=== PATIENT | female | born 1950 | race Caucasian/White ===

== ENCOUNTER 2024-03-12 13:01 | Outpatient (POV) | payer MEDICARE, SELFPAY ==
--- OUTSIDE RECORDS SUMMARY | 2024-03-12 13:05 | XMS_ITS | Continuity of Care Document ---
Author Name Unknown Address [address] [facility] [place] [id number] Organization [facility] Phone Care Team Providers Care Is Consultant Name Role Phone AUDREY CHEN [facility] LINWOOD DUENAS Admitting LINWOOD DUENAS Unavailable LINWOOD DUENAS Primary Attending ALLERGIES AND ADVERSE REACTIONS ALLERGIES AND ADVERSE REACTIONS Code System Allergy Substance Adverse Reaction Date Reaction (Severity) Comment Status Reported By Updated By 7597 RXNorm NYSTATIN Adverse reaction to substance Not Specified active [id number] on December 03, 2023 3:48:40 PM [facility] 7052 RXNorm MORPHINE Adverse reaction to substance Not Specified active [id number] on December 03, 2023 3:48:40 PM [facility] [id number] SNOMED CT CORTICOSTEROIDS Adverse reaction to substance Not Specified active [id number] on December 03, 2023 3:48:40 PM [facility] FAMILY HISTORY RELATION: Father Status: Cause of : Old-age Age at : 100 SNOMED-CT Diagnosis Age At Onset Information not available RELATION: Mother Status: Cause of : Coronary arteriosclerosis Age at : 63 SNOMED-CT Diagnosis Age At Onset [id number] Coronary arteriosclerosis TREATMENT PLAN DISCHARGE MEDICATIONS Status RXNORM Medication Dose Route Frequency Dates Comments U pdated By Patient discharge medication information is not available. PATIENT OPEN ORDERS Code System Description Frequency Occurrences Priority [place] [address] - [facility]-ray 2 views ONE TIME 0 Stat March 07, 2024 7:04:00 PM [facility] YULISSA Jose MD [id number] on March 07, 2024 7:17:00 PM [facility] SCHEDULED PROCEDURES Code System Description Status Scheduled Date Upd ated By Patient scheduled procedure information is not available. MEDICATIONS HOME MEDICATIONS Status RXNORM NDC Medication Dose Route Frequency Dates Comments Reported By Updated By Drug Treatment Unknown DISCHARGE MEDICATIONS Status RXNORM NDC Medication Dose Route Frequency Dates Comments Physician Updated By No Discharge Medication Info rmation Available INPATIENT MEDICATIONS Status RXNORM NDC Medication Dose Route Frequency Rat e Quantity Dates Comments Physician Updated By Eldon [facility] [id number] 9099 120 traMADol (ULTRAM) 50 MG TABS 50.0 MG BY MOUTH ONE TIME ONLY Start: March 07, 2024 9:33:0 0 PM UTC End: March 07, 2024 9:33:0 0 PM [facility] YULISSA Jose MD INTERF ED on March 07, 2024 9:32:00 PM [place] SOCIAL HISTORY SOCIAL HISTORY SNOMED-CT Social History Element Description Effective Dates Offered Cessation Comment UpdatedBy [id number] Historical Tobacco smoking status Former Smoker Yes [id number] on June 15, 2019 5:40:59 PM [facility] SOCIAL HISTORY - Gender Sex: Female SOCIAL HISTORY - Status : status i nformation is not available Intention in Next Year: intention information is not available SOCIAL HISTORY - Sexual Behavior Sexual Orientation Gender Identity SNOMED-CT Description SNO MED -CT Description Activity Level No of Partners Partner Type UpdatedBy Information is not available VITAL SIGNS PATIENT VITAL SIGNS This section displays the mo st recent value for each vital sign as of March 07, 2024 10:38:03 PM [facility] Loinc Code Vital Sign Activity Date Result Updated By 8462-4 Diastolic blood pressure March 07, 2024 9:22:00 PM [place] 105.0 mm[Hg] [id number] on March 07, 2024 9:23:57 PM [facility] 8867-4 Heart rate March 07, 2024 9:2 2:00 PM UT 78 /min [id number] on March 07, 2024 9:23:57 PM [facility] 54827-3 Oxygen saturation in Arterial blood by Pulse oximetry March 07, 2024 9:22:00 PM UT 98.0 % [id number] on March 07, 2024 9:23:57 PM [facility] 9279-1 Respiratory rate March 07, 2024 9: 22:00 PM UT 95 /min [id number] on March 07, 2024 9:23:57 PM [facility] 8480-6 Systolic blood pressure March 07, 2024 9:22:00 PM UT 196.0 mm[Hg] [id number] on March 07, 2024 9:23:57 PM [facility] PEDIATRIC GROWTH CHART - VITAL SIGNS This section displays Head C ircumference Percentile, Weight for Length Percentile and BMI Percentile Loinc Code Pediatric Measure Age (Months) Result Updat ed By No Pediatric Growth Chart Pe rcentile Information Available. HEALTH CONCERNS Problems Concern Status Health Concern problem infor mation not available. Smoking Status Status Years Used Consumed packs p er day Health Concern smoking histo ry information not available. Family History Concern Status Health Concern family histor y information not available. ENCOUNTERS ENCOUNTER INFORMATION Reason for Visit LEG PAIN Admission March 07, 2024 6:33:[address] [id number] Discharge March 07, 2024 9:38:00 PM [facility] DISC HARGED TO HOME OR SELF CARE ENCOUNTER DIAGNOSES Notes information is not anila ilable. Code System Diagnosis Onset Date Diagnosis information is not available. ABSTRACT DIAGNOSES Code System Diagnosis Updated By Abstract Diagnosis informati on is not available. CARE TEAM Care Is Consultant Role AUDREY CHEN Primary Care LINWOOD DUENAS Admitting LINWOOD DUENAS Referring LINWOOD DUENAS Primary Attending CARE TEAM CARE recreation programmer Role on Team Status Start Date End Date Update d By YULISSA AGUILAR Referring normal March 07, 2024 7:17:41 PM [facility] March 07, 2024 9:38:00 PM [facility] [id number] on March 07, 2024 7:17:41 PM [facility] YULISSA AGUILAR Attending normal March 07, 2024 7:17:41 PM [facility] March 07, 2024 9:38:00 PM [facility] [id number] on March 07, 2024 7:17:41 PM [facility] YULISSA AGUILAR Admitting normal March 07, 2024 7:17:41 PM [facility] March 07, 2024 9:38:00 PM [facility] [id number] on March 07, 2024 7:17:41 PM [facility] GUSTAVO AGUILAR PCP normal March 07, 2024 6:33:31 PM [facility] March 07, 2024 9:38:00 PM [facility] [id number] on March 07, 2024 7:17:41 PM [facility]
--- OUTSIDE RECORDS SUMMARY | 2024-03-12 13:05 | XMS_ITS | Continuity of Care Document ---
Author Name Unknown Address [address] [place] [id number] Organization [facility] Phone Care Team Providers Care Identity Access Management Architect Name Role Phone LINWOOD DUENAS Primary Attending AUDREY CHEN Primary Care LINWOOD DUENAS Unavailable LINWOOD DUENAS Admitting ALLERGIES AND ADVERSE REACTIONS ALLERGIES AND ADVERSE REACTIONS Code System Allergy Substance Adverse Reaction Date Reaction (Severity) Comment Status Reported By [place] 7589 RXNorm NYSTATIN Adverse reaction to substance Not Specified active [id number] on December 03, 2023 3:48:40 PM [place] 7052 RXNorm MORPHINE Adverse reaction to substance Not Specified active [id number] on December 03, 2023 3:48:40 PM [place] [id number] SN[place]ED CT CORTICOSTEROIDS Adverse reaction to substance Not Specified active [id number] on December 03, 2023 3:48:40 PM [facility] FAMILY HISTORY RELATION: Father Status: Cause of : Old-age Age at : 100 SNOMED-CT Diagnosis Age At Onset Information not available RELATION: Mother Status: Cause of : Coronary arteriosclerosis Age at : 63 SNOMED-CT Diagnosis Age At Onset [id number] Coronary arteriosclerosis RESULTS Patient: EVENS Ferrari Date of : 1950 LABORATORY RESULTS ORDER 100: COMP METABOLIC PA SAMMI (LOINC: 40354-1) ORDER DATE: December 03, 2023 3:51:00 PM [place] Specimen Source: Serum/Plasm a Specimen Type: Acellular blo od (serum or plasma) specimen PERFORMING LAB: [address] [id number] Result Comment: Final Result Date: December 03, 2023 4:22:00 PM UT (TECH: HC) LOINC TEST FLAG RESULT REFERENCE RANGE UPDA MATEO BY 2951-2 Sodium [Moles/volume ] in Serum or Plasma N 141 mmol/L 136 mmol/L - 145 mmol/L December 03, 2023 4:22:00 PM UT (TECH: [employer]) 2823-3 Potassium [Moles/volume] in Serum or Plasma N 4.1 mmol/L 3.5 mmol/L - 5.1 mmol/L December 03, 2023 4:22:00 PM UT (TECH: [employer]) 5-0 Chloride [Moles/volu me] in Serum or Plasma N 101 mmol/L 98 mmol/L - 107 mmol/L December 03, 2023 4:22:00 PM UT (TECH: [employer]) 2027-9 Carbon dioxide, tota l [Moles/volume] in Serum or Plasma H 34 mmol/L 21 mmol/L - 32 mmol/L December 03, 2023 4:22:00 PM [facility] (TECH: [employer]) 92429-0 Anion gap 3 in Serum or Plasma N 6.0 December 03, 2023 4:22:00 PM [facility] (TECH: [employer]) 2345-7 Glucose [Mass/volume ] in Serum or Plasma H 143 mg/dL 70 mg/dL - 110 mg/dL December 03, 2023 4:22:00 PM [facility] ([employer]: Entelos) 3094-0 Urea nitrogen [Mass/volume] in Serum or Plasma N 14 mg/dL 7 mg/dL - 18 mg/dL December 03, 2023 4:22:00 PM [facility] (TECH: [employer]) 2160-0 Creatinine [Mass/volume] in Serum or Plasma H 1.1 mg/dL 0.6 mg/dL - 1.0 mg/dL December 03, 2023 4:22:00 PM [facility] (TECH: [employer]) 3097-3 Urea nitrogen/Creatinine [Mass Ratio] in Serum or Plasma N 12.7 Ratio 9 Ratio - 21 Ratio December 03, 2023 4:22:00 PM [facility] (TECH: [employer]) 04340-3 Glomerular filtratio n rate/1.73 sq M.predicted by Creatinine-based formula (MDRD) L 52 mL/min >60 December 03, 2023 4:22:00 PM UT (TECH: [employer]) 2885-2 Protein [Mass/volume ] in Serum or Plasma N 7.6 g/dL 6.4 g/dL - 8.2 g/dL December 03, 2023 4:22:00 PM UT (TECH: [employer]) 1751-7 Albumin [Mass/volume ] in Serum or Plasma N 3.6 g/dL 3.4 g/dL - 5.0 g/dL December 03, 2023 4:22:00 PM [place] (TECH: [employer]) 63010-1 Calcium [Mass/volume ] in Serum or Plasma N 10.1 mg/dL 8.5 mg/dL - 10.1 mg/dL December 03, 2023 4:22:00 PM UT (TECH: [employer]) 25816-0 Calcium [Mass/volume ] corrected for total protein in Serum or Plasma H 10.4 mg/dL 8.5 mg/dL - 10.1 mg/dL December 03, 2023 4:22:00 PM [facility] (TECH: [employer]) 1975-2 Bilirubin.total [Mass/volume] in Serum or Plasma N 0.4 mg/dL 0.4 mg/dL - 1.5 mg/dL December 03, 2023 4:22:00 PM [facility] (TECH: [employer]) 1920-8 Aspartate aminotransferase [Enzymatic activity/volume] in Serum or Plasma N 16 U/L 15 U/L - 37 U/L December 03, 2023 4:22:00 PM UT (TECH: [employer]) 1742-6 Alanine aminotransferase [Enzymatic activity/volume] in Serum or Plasma L 11 U/L 12 U/L - 78 U/L December 03, 2023 4:22:00 PM [facility] (TECH: [employer]) 6768-6 Alkaline phosphatase [Enzymatic activity/volume] in Serum or Plasma N 84 U/L 53 U/L - 141 U/L December 03, 2023 4:22:00 PM UT (TECH: [employer]) ORDER 200: CBC AUTO W DIFF ( LOINC: 68439-6) ORDER DATE: December 03, 2023 3:51:00 PM UT Specimen Source: Whole Blood Specimen Type: Whole blood s ample PERFORMING LAB: [address] [id number] Result Comment: Final Result Date: December 03, 2023 4:10:00 PM UT (TECH: [employer]) LOINC TEST FLAG RESULT REFERENCE RANGE UPDA MATEO BY 6690-2 Leukocytes [#/volume] in Blood by Automated count N 8.5 10^3/uL 4.5 10^3/uL - 11.5 10^3/uL December 03, 2023 4:10:00 PM UTC ([employer]) 789-8 Erythrocytes [#/volume] in Blood by Automated count N 5.46 10^6/uL 4.25 10^6/uL - 5.57 10^6/uL December 03, 2023 4:10:00 PM UTC ([employer]) 718-7 Hemoglobin [Mass/volume] in Blood H 16.3 g/dL 12.0 g/dL - 15.7 g/dL December 03, 2023 4:10:00 PM UTC (TECH: [employer]) 07837-0 Hematocrit [Volume Fraction] of Blood H 48.3 % 36.0 % - 47.0 % December 03, 2023 4:10:00 PM UTC ([employer]) 787-2 Erythrocyte mean corpuscular volume [Entitic volume] by Automated count N 88.5 fl 80 fl - 95 fl December 03, 2023 4:10:00 PM UTC ([employer]) 22582-5 Erythrocyte mean corpuscular hemoglobin [Entitic mass] in Blood from Fetus by Automated count N 29.9 pg 27.0 pg - 34.0 pg December 03, 2023 4:10:00 PM UTC ([employer]: [employer]elos) 07168-6 Erythrocyte mean corpuscular hemoglobin concentration [Mass/volume] in Blood from Fetus by Automated count N 33.7 g/dL 32.0 g/dL - 36.0 g/dL December 03, 2023 4:10:00 PM UTC ([employer]: [employer]elos) 08354-5 Platelets [#/volume] in Blood N 278 10^3/uL 150 10^3/uL - 450 10^3/uL December 03, 2023 4:10:00 PM UTC ([employer]: [employer]) 73261-4 Erythrocyte distribution width [Ratio] N 12.4 % 12.3 % - 15.1 % December 03, 2023 4:10:00 PM UTC (TECH: [employer]) 38607-2 Platelet mean volume [Entitic volume] in Blood by Automated count N 10.0 fl 7.4 fl - 10.4 fl December 03, 2023 4:10:00 PM UTC (TECH: HC) 49325-4 Granulocytes/100 leukocytes in Blood by Automated count N 67.8 % 40 % - 75 % December 03, 2023 4:10:00 PM UTC (TECH: HC) 736-9 Lymphocytes/100 leukocytes in Blood by Automated count N 24.4 % 15 % - 57 % December 03, 2023 4:10:00 PM UTC (TECH: HC) 5905-5 Monocytes/100 leukocytes in Blood by Automated count N 5.6 % 4.0 % - 12.0 % December 03, 2023 4:10:00 PM UTC (TECH: HC) 713-8 Eosinophils/100 leukocytes in Blood by Automated count N 1.3 % 0.0 % - 4.0 % December 03, 2023 4:10:00 PM UTC (TECH: HC) 706-2 Basophils/100 leukocytes in Blood by Automated count N 0.5 % 0.0 % - 1.0 % December 03, 2023 4:10:00 PM UTC (TECH: HC) 48358-4 Immature granulocytes [#/volume] in Blood N 0.4 % 0.0 % - 0.8 % December 02 4:10:00 PM UTC (TECH: HC) 83338-9 Granulocytes [#/volume] in Blood by Automated count N 5.74 10^3/uL December 03, 2023 4:10:00 PM UTC (TECH: HC) 731-0 Lymphocytes [#/volume] in Blood by Automated count N 2.06 10^3/uL December 03, 2023 4:10:00 PM UTC (TECH: HC) 742-7 Monocytes [#/volume] in Blood by Automated count N 0.47 10^3/uL December 03, 2023 4:10:00 PM UTC (TECH: HC) 711-2 Eosinophils [#/volume] in Blood by Automated count N 0.11 10^3/uL December 03, 2023 4:10:00 PM UTC (TECH: HC) 704-7 Basophils [#/volume] in Blood by Automated count N 0.04 10^3/uL December 03, 2023 4:10:00 PM UTC (TECH: HC) 73058-0 Immature granulocytes [#/volume] in Blood N 0.03 10^3/uL December 02 4:10:00 PM UTC (TECH: HC) 21698-9 Manual differential performed [Presence] in Blood N NO December 03, 2023 4:10:00 PM UTC (TECH: HC) ORDER 300: UA AND MICRO/CULT IF INDICATED (LOINC: 25896-6) ORDER DATE: December 03, 2023 3:51:00 PM UTC Specimen Source: URINE Specimen Type: Urine specime n PERFORMING LAB: [address] [id number] Result Comment: Final Result Date: December 03, 2023 4:04:00 PM UTC (TECH: HC) LOINC TEST FLAG RESULT REFERENCE RANGE UPDA MATEO BY 5778-6 Color of Urine N yellow YELLOW December 03, 2023 4:04:00 PM UTC (TECH: HC) 5767-9 Appearance of Urine N clear CLEAR December 03, 2023 4:04:00 PM UTC (TECH: HC) 5792-7 Glucose [Mass/volume ] in Urine by Test strip N NORM NORMAL December 02 4:04:00 PM UTC (TECH: HC) 14896-5 Bilirubin.total [Mass/volume] in Urine by Automated test strip N NEGATIVE NEGATIVE December 03, 2023 4:04:00 PM UTC (TECH: HC) 5797-6 Ketones [Mass/volume ] in Urine by Test strip N NEGATIVE NEGATIVE December 02 4:04:00 PM UTC (TECH: HC) 2965-2 Specific gravity of Urine N 1.010 1.005 - 1.035 December 03, 2023 4:04:00 PM UTC (TECH: HC) 51719-4 Erythrocytes [#/volu me] in Urine by Automated test strip N NEGATIVE NEGATIVE December 03, 2023 4:04:00 PM UTC (TECH: HC) 63562-0 pH of Urine by Autom ated test strip H 8.00 5.0 - 7.5 December 03, 2023 4:04:00 PM UTC (TECH: HC) 29366-8 Protein [Presence] i n Urine by Test strip N NEGATIVE NEGATIVE December 02 4:04:00 PM UTC (TECH: HC) 30297-9 Urobilinogen [Mass/volume] in Urine by Automated test strip N NORM NORMAL December 03, 2023 4:04:00 PM UT ([employer] ) 96813-1 Nitrate [Presence] i n Urine N NEGATIVE NEGATIVE December 03, 2023 4:04:00 PM UT ([employer] ) 76108-8 Leukocytes [#/volume ] in Urine by Test strip N NEGATIVE NEGATIVE December 02 4:04:00 PM UTC ([employer] ) 07563-6 Other elements in Ur ine sediment N NOT REQUIRED December 03, 2023 4:04:00 PM UT ([employer] ) 92288-2 Microscopic observat ion [Identifier] in Urine sediment by Light microscopy N NO December 03, 2023 4:04:00 PM UT ([employer]) LABORATORY NARRATIVE RESULTS Information is not available RADIOLOGY RESULTS Information is not available PATHOLOGY NARRATIVE RESULTS Information is not available MICROBIOLOGY RESULTS No Micro Labs/Results Exist for Patient BLOOD ADMIN RESULTS Information is not available MEDICATIONS HOME MEDICATIONS Status RXNORM ND Medication Dose Route Frequency Dates Comments Reported By Updated By Active 243323 72429 01495 0 ATENOLOL 25MG TAB 0.0 MG Last Dose: [id number] on December 03, 2023 3:48:44 PM UT Active 217313 17783 55270 2 ALPRAZOLAM 1MG TAB 0.0 PRN Last Dose: [id number] on December 03, 2023 3:48:45 PM UT Active FreeT extMe d GLIPIZIDE 10MG TAB 0.0 BID Last Dose: [id number] on December 03, 2023 3:48:45 PM UT Active 665062 28546 92156 9 LEVOTHYROXIN 88MCG TAB 0.0 DAILY Last Dose: [id number] on December 03, 2023 3:48:46 PM UT Active 1379688 26560 40229 3 Ozempic 0.25 mg or 0.5 mg (2 mg/3 mL) Pen Injector 1.0 MG SUBCUT ANEOUS QWEEK Last Dose: [id number] on December 03, 2023 3:48:46 PM UT DISCHARGE MEDICATIONS Status RXNORM NDC Medication Dose Route Frequency Dates Comments Physician Updated By No Discharge Medication Info rmation Available INPATIENT MEDICATIONS Status RXNORM NDC Medication Dose Route Frequency Rat e Quantity Dates Comments Physician Updated By Eldon inued 8915 4803 710 prochlorper azine (COMPAZINE) 5 MG/ML SOLN 10.0 MG ONE TIME ONLY Start: December 03, 2023 4:03:0 0 PM UTC End: December 03, 2023 4:03:0 0 PM UTC YULISSA Jose MD INTERFAC ED on December 03, 2023 4:01:00 PM UTC Eldon inued [id number] 2934 0503 912 famotidine (PEPCID) 20 MG/2ML SOLN 20.0 MG INTRAV ENOUS ONE TIME ONLY Start: December 03, 2023 4:25:0 0 PM UTC End: December 03, 2023 4:25:0 0 PM UTC YULISSA Jose MD INTERFAC ED on December 03, 2023 4:23:00 PM UT SOCIAL HISTORY SOCIAL HISTORY SNOMED-CT Social History Element Description Effective Dates Offered Cessation Comment UpdatedBy [id number] Historical Tobacco smoking status Former Smoker Yes [id number] on June 15, 2019 5:40:59 PM UT [...] value for each vital sign as of December 03, 2023 7:10:06 PM UT Loinc Code Vital Sign Activity Date Result Updated By 8310-5 Body temperature December 03, 2023 5:20:00 PM UT 98.1 [degF] [id number] on December 03, 2023 6:09:23 PM UT 8462-4 Diastolic blood pressure December 03, 2023 5:20:00 PM UTC 87.0 mm[Hg] [id number] on December 03, 2023 6:09:23 PM UT 8867-4 Heart rate December 03, 2023 5:20:00 PM UTC 78 /min [id number] on December 03, 2023 6:09:23 PM [facility] 35041-4 Oxygen saturation in Arterial blood by Pulse oximetry December 03, 2023 5:20:00 PM UT 100.0 % [id number] on December 03, 2023 6:09:23 PM [facility] 9279-1 Respiratory rate December 03, 2023 5:20:00 PM UT 18 /min [id number] on December 03, 2023 6:09:23 PM UT 8480-6 Systolic blood pressure December 03, 2023 5:20:00 PM UTC 134.0 mm[Hg] [id number] on December 03, 2023 6:09:23 PM [facility] PEDIATRIC GROWTH CHART - VITAL SIGNS [...] available. ENCOUNTERS ENCOUNTER INFORMATION Reason for Visit NAUSEA WITH VOMITING AND DIARRHEA Admission December 03, 2023 3:26:[address] [address] Discharge December 03, 2023 6:10:00 PM [facility] DIS CHARGED TO HOME OR SELF CARE ENCOUNTER DIAGNOSES Notes information is not anila ilable. Code System Diagnosis Onset Date Diagnosis information is not available. ABSTRACT DIAGNOSES Code System Diagnosis Updated By Abstract Diagnosis informati on is not available. CARE TEAM Care Identity Access Management Architect Role LINWOOD DUENAS Primary Attending [facility] Primary Care LINWOOD DUENAS Referring LINWOOD DUENAS Admitting CARE TEAM CARE can dryer Role on Team Status Start Date End Date Update d By YULISSA AGUILAR Referring normal December 03, 2023 4:11:05 PM [facility] December 03, 2023 6:10:00 PM [facility] [id number] on December 03, 2023 4:11:05 PM [facility] YULISSA AGUILAR Attending normal December 03, 2023 4:11:05 PM [facility] December 03, 2023 6:10:00 PM [facility] [id number] on December 03, 2023 4:11:05 PM [facility] YULISSA AGUILAR Admitting normal December 03, 2023 4:11:05 PM [facility] December 03, 2023 6:10:00 PM [facility] [id number] on December 03, 2023 4:11:05 PM [facility] GUSTAVO Masterson MD PHY PCP normal December 03, 2023 3:27:35 PM [facility] December 03, 2023 6:10:00 PM [facility] [id number] on December 03, 2023 4:11:05 PM [facility]
--- OUTSIDE RECORDS SUMMARY | 2024-03-12 13:05 | XMS_ITS | Continuity of Care Document ---
Author Name Unknown Address [address] [place] [phone] Organization [facility] Phone Care Team Providers Care Data Security Analyst Name Role Phone LINWOOD DUENAS Primary Attending AUDREY CHEN Primary Care LINWOOD DUENAS Unavailable LINWOOD DUENAS Admitting ALLERGIES AND ADVERSE REACTIONS ALLERGIES AND ADVERSE REACTIONS Code System Allergy Substance Adverse Reaction Date Reaction (Severity) Comment Status Reported By Updated By 7529 RXNorm NYSTATIN Adverse reaction to substance Not Specified active [id number] on December 03, 2023 3:48:40 PM UT 7052 RXNorm MORPHINE Adverse reaction to substance Not Specified active [id number] on December 03, 2023 3:48:40 PM [place] [id number] SNOMED CT CORTICOSTEROIDS Adverse reaction to substance Not Specified active [id number] on December 03, 2023 3:48:40 PM UT FAMILY HISTORY RELATION: Father Status: Cause of : Old-age Age at : 100 SNOMED-CT Diagnosis Age At Onset Information not available RELATION: Mother Status: Cause of : Coronary arteriosclerosis Age at : 63 SNOMED-CT Diagnosis Age At Onset [id number] Coronary arteriosclerosis RESULTS Patient: EVENS Ferrari Date of : 1950 LABORATORY RESULTS ORDER 100: COMP METABOLIC PA SAMMI (LOINC: 72065-5) ORDER DATE: December 03, 2023 3:51:00 PM UT Specimen Source: Serum/Plasm a Specimen Type: Acellular blo od (serum or plasma) specimen PERFORMING LAB: [address] [id number] Result Comment: Final Result Date: December 03, 2023 4:22:00 PM UT (TECH: HC) LOINC TEST FLAG RESULT REFERENCE RANGE UPDA MATEO BY 2951-2 Sodium [Moles/volume ] in Serum or Plasma N 141 mmol/L 136 mmol/L - 145 mmol/L December 03, 2023 4:22:00 PM UT (TECH: [employer]) 2823-3 Potassium [Moles/volume] in Serum or Plasma N 4.1 mmol/L 3.5 mmol/L - 5.1 mmol/L December 03, 2023 4:22:00 PM UT (TECH: [employer]) 5-0 Chloride [Moles/volu me] in Serum or Plasma N 101 mmol/L 98 mmol/L - 107 mmol/L December 03, 2023 4:22:00 PM UT (TECH: [employer]) 2027-9 Carbon dioxide, tota l [Moles/volume] in Serum or Plasma H 34 mmol/L 21 mmol/L - 32 mmol/L December 03, 2023 4:22:00 PM [facility] [[email or web address]] (TECH: [employer]) 61078-7 Anion gap 3 in Serum or Plasma N 6.0 December 03, 2023 4:22:00 PM [facility] [[email or web address]] (TECH: [employer]) 2345-7 Glucose [Mass/volume ] in Serum or Plasma H 143 mg/dL 70 mg/dL - 110 mg/dL December 03, 2023 4:22:00 PM [facility] [[email or web address]] ([employer]: [employer]) 3094-0 Urea nitrogen [Mass/volume] in Serum or Plasma N 14 mg/dL 7 mg/dL - 18 mg/dL December 03, 2023 4:22:00 PM [facility] [[email or web address]] (TECH: [employer]) 2160-0 Creatinine [Mass/volume] in Serum or Plasma H 1.1 mg/dL 0.6 mg/dL - 1.0 mg/dL December 03, 2023 4:22:00 PM [facility] [[email or web address]] (TECH: [employer]) 3097-3 Urea nitrogen/Creatinine [Mass Ratio] in Serum or Plasma N 12.7 Ratio 9 Ratio - 21 Ratio December 03, 2023 4:22:00 PM [facility] [[email or web address]] (TECH: [employer]) 22727-1 Glomerular filtratio n rate/1.73 sq M.predicted by Creatinine-based formula (MDRD) L 52 mL/min >60 December 03, 2023 4:22:00 PM UT (TECH: [employer]) 2885-2 Protein [Mass/volume ] in Serum or Plasma N 7.6 g/dL 6.4 g/dL - 8.2 g/dL December 03, 2023 4:22:00 PM UT (TECH: [employer]) 1751-7 Albumin [Mass/volume ] in Serum or Plasma N 3.6 g/dL 3.4 g/dL - 5.0 g/dL December 03, 2023 4:22:00 PM UT (TECH: [employer]) 18962-5 Calcium [Mass/volume ] in Serum or Plasma N 10.1 mg/dL 8.5 mg/dL - 10.1 mg/dL December 03, 2023 4:22:00 PM UT (TECH: [employer]) 63802-6 Calcium [Mass/volume ] corrected for total protein in Serum or Plasma H 10.4 mg/dL 8.5 mg/dL - 10.1 mg/dL December 03, 2023 4:22:00 PM [facility] [[email or web address]] (TECH: [employer]) 1975-2 Bilirubin.total [Mass/volume] in Serum or Plasma N 0.4 mg/dL 0.4 mg/dL - 1.5 mg/dL December 03, 2023 4:22:00 PM [facility] [[email or web address]] (TECH: [employer]) 1920-8 Aspartate aminotransferase [Enzymatic activity/volume] in Serum or Plasma N 16 U/L 15 U/L - 37 U/L December 03, 2023 4:22:00 PM UT (TECH: [employer]) 1742-6 Alanine aminotransferase [Enzymatic activity/volume] in Serum or Plasma L 11 U/L 12 U/L - 78 U/L December 03, 2023 4:22:00 PM [facility] [[email or web address]] (TECH: [employer]) 6768-6 Alkaline phosphatase [Enzymatic activity/volume] in Serum or Plasma N 84 U/L 53 U/L - 141 U/L December 03, 2023 4:22:00 PM UT (TECH: [employer]) ORDER 200: CBC AUTO W DIFF ( LOINC: 36255-7) ORDER DATE: December 03, 2023 3:51:00 PM UT Specimen Source: Whole Blood Specimen Type: Whole blood s ample PERFORMING LAB: [address] [id number] Result Comment: Final Result Date: December 03, 2023 4:10:00 PM UT (TECH: [employer]) LOINC TEST FLAG RESULT REFERENCE RANGE UPDA MATEO BY 6690-2 Leukocytes [#/volume] in Blood by Automated count N 8.5 10^3/uL 4.5 10^3/uL - 11.5 10^3/uL December 03, 2023 4:10:00 PM UTC ([employer]) 789-8 Erythrocytes [#/volume] in Blood by Automated count N 5.46 10^6/uL 4.25 10^6/uL - 5.57 10^6/uL December 03, 2023 4:10:00 PM UTC ([employer]) 718-7 Hemoglobin [Mass/volume] in Blood H 16.3 g/dL 12.0 g/dL - 15.7 g/dL December 03, 2023 4:10:00 PM UTC (TECH: [employer]) 59696-5 Hematocrit [Volume Fraction] of Blood H 48.3 % 36.0 % - 47.0 % December 03, 2023 4:10:00 PM UTC ([employer]) 787-2 Erythrocyte mean corpuscular volume [Entitic volume] by Automated count N 88.5 fl 80 fl - 95 fl December 03, 2023 4:10:00 PM UTC ([employer]) 75067-7 Erythrocyte mean corpuscular hemoglobin [Entitic mass] in Blood from Fetus by Automated count N 29.9 pg 27.0 pg - 34.0 pg December 03, 2023 4:10:00 PM UTC ([employer] [employer]) 68242-4 Erythrocyte mean corpuscular hemoglobin concentration [Mass/volume] in Blood from Fetus by Automated count N 33.7 g/dL 32.0 g/dL - 36.0 g/dL December 03, 2023 4:10:00 PM UTC ([employer] [employer]) 59764-5 Platelets [#/volume] in Blood N 278 10^3/uL 150 10^3/uL - 450 10^3/uL December 03, 2023 4:10:00 PM UTC ([employer]: [employer]) 52213-5 Erythrocyte distribution width [Ratio] N 12.4 % 12.3 % - 15.1 % December 03, 2023 4:10:00 PM UTC (TECH: [employer]) 17217-0 Platelet mean volume [Entitic volume] in Blood by Automated count N 10.0 fl 7.4 fl - 10.4 fl December 03, 2023 4:10:00 PM UTC (TECH: [facility]) 94495-2 Granulocytes/100 leukocytes in Blood by Automated count [...] 03, 2023 4:10:00 PM UTC (TECH: [facility]) 23113-7 Immature granulocytes [#/volume] in Blood N 0.4 % 0.0 % - 0.8 % December 02 4:10:00 PM UTC (TECH: [facility]) 05786-8 Granulocytes [#/volume] in Blood by Automated count [...] 03, 2023 4:10:00 PM UTC (TECH: [facility]) 20831-2 Immature granulocytes [#/volume] in Blood N 0.03 10^3/uL December 02 4:10:00 PM UTC (TECH: [facility]) 84767-4 Manual differential performed [Presence] in Blood N NO December 03, 2023 4:10:00 PM UTC (TECH: HC) ORDER 300: UA AND MICRO/CULT IF INDICATED (LOINC: 17864-5) ORDER DATE: December 03, 2023 3:51:00 PM UTC Specimen Source: URINE Specimen Type: Urine specime n PERFORMING LAB: [address] [id number] Result Comment: Final Result Date: December 03, [...] December 02 4:04:00 PM UTC (TECH: [facility]) 76409-7 Bilirubin.total [Mass/volume] in Urine by Automated test strip N NEGATIVE NEGATIVE December 03, 2023 4:04:00 PM UTC (TECH: [facility]) 5797-6 Ketones [Mass/volume ] in Urine by Test strip N NEGATIVE NEGATIVE December 02 4:04:00 PM UTC (TECH: [facility]) 2965-2 Specific gravity of Urine N 1.010 1.005 - 1.035 December 03, 2023 4:04:00 PM UTC (TECH: [facility]) 43956-7 Erythrocytes [#/volu me] in Urine by Automated test strip N NEGATIVE NEGATIVE December 03, 2023 4:04:00 PM UTC (TECH: [facility]) 40291-4 pH of Urine by Autom ated test strip H 8.00 5.0 - 7.5 December 03, 2023 4:04:00 PM UTC (TECH: [facility]) 57818-9 Protein [Presence] i n Urine by Test strip N NEGATIVE NEGATIVE December 02 4:04:00 PM UTC (TECH: [facility]) 23522-0 Urobilinogen [Mass/volume] in Urine by Automated test strip N NORM NORMAL December 03, 2023 4:04:00 PM UT ([employer] ) 31544-7 Nitrate [Presence] i n Urine N NEGATIVE NEGATIVE December 03, 2023 4:04:00 PM UT ([employer] ) 49692-3 Leukocytes [#/volume ] in Urine by Test strip N NEGATIVE NEGATIVE December 02 4:04:00 PM UTC ([employer] ) 34240-5 Other elements in Ur ine sediment N NOT REQUIRED December 03, 2023 4:04:00 PM UT ([employer] ) 87532-5 Microscopic observat ion [Identifier] in Urine sediment by Light microscopy N NO December 03, 2023 4:04:00 PM UT ([employer]) LABORATORY NARRATIVE RESULTS Information is not available RADIOLOGY RESULTS Information is not available PATHOLOGY NARRATIVE RESULTS Information is not available MICROBIOLOGY RESULTS No Micro Labs/Results Exist for Patient BLOOD ADMIN RESULTS Information is not available MEDICATIONS HOME MEDICATIONS Status RXNORM ND Medication Dose Route Frequency Dates Comments Reported By Updated By Active 602763 60769 34745 0 ATENOLOL 25MG TAB 0.0 MG Last Dose: [id number] on December 03, 2023 3:48:44 PM UT Active 638819 48748 71651 2 ALPRAZOLAM 1MG TAB 0.0 PRN Last Dose: [id number] on December 03, 2023 3:48:45 PM UT Active FreeT extMe d GLIPIZIDE 10MG TAB 0.0 BID Last Dose: [id number] on December 03, 2023 3:48:45 PM UT Active 651671 08785 20536 9 LEVOTHYROXIN 88MCG TAB 0.0 DAILY Last Dose: [id number] on December 03, 2023 3:48:46 PM UT Active 6516294 10151 61745 3 Ozempic 0.25 mg or 0.5 mg (2 mg/3 mL) Pen Injector 1.0 MG SUBCUT ANEOUS QWEEK Last Dose: [id number] on December 03, 2023 3:48:46 PM UT DISCHARGE MEDICATIONS Status RXNORM NDC Medication Dose Route Frequency Dates Comments Physician Updated By No Discharge Medication Info rmation Available INPATIENT MEDICATIONS Status RXNORM NDC Medication Dose Route Frequency Rat e Quantity Dates Comments Physician Updated By Eldon inued 2187 9105 710 prochlorper azine (COMPAZINE) 5 MG/ML SOLN 10.0 MG ONE TIME ONLY Start: December 03, 2023 4:03:0 0 PM UTC End: December 03, 2023 4:03:0 0 PM UTC YULISSA Jose MD INTERFAC ED on December 03, 2023 4:01:00 PM UTC Eldon inued [id number] 3861 0033 912 famotidine (PEPCID) 20 MG/2ML SOLN 20.0 MG INTRAV ENOUS ONE TIME ONLY Start: December 03, 2023 4:25:0 0 PM UTC End: December 03, 2023 4:25:0 0 PM UTC YULISSA Jose MD INTERFAC ED on December 03, 2023 4:23:00 PM UT SOCIAL HISTORY SOCIAL HISTORY SNOMED-CT Social History Element Description Effective Dates Offered Cessation Comment UpdatedBy [id number] Historical Tobacco smoking status Former Smoker Yes [id number] on June 15, 2019 5:40:59 PM UT [...] for each vital sign as of December 06, 2023 3:08:03 PM UT Loinc Code Vital Sign Activity Date Result Updated By 8310-5 Body temperature December 03, 2023 5:20:00 PM UT 98.1 [degF] [id number] on December 03, 2023 6:09:23 PM UT 8462-4 Diastolic blood pressure December 03, 2023 5:20:00 PM UTC 87.0 mm[Hg] [id number] on December 03, 2023 6:09:23 PM UT 8867-4 Heart rate December 03, 2023 5:20:00 PM UTC 78 /min [id number] on December 03, 2023 6:09:23 PM [facility] [[email or web address]] 28922-9 Oxygen saturation in Arterial blood by Pulse oximetry December 03, 2023 5:20:00 PM UT 100.0 % [id number] on December 03, 2023 6:09:23 PM UT 9279-1 Respiratory rate December 03, 2023 5:20:00 PM UTC 18 /min AVO9496 on December 03, 2023 6:09:23 PM UT 8480-6 Systolic blood pressure December 03, 2023 5:20:00 PM UTC 134.0 mm[Hg] [id number] on December 03, 2023 6:09:23 PM UT PEDIATRIC GROWTH CHART - VITAL SIGNS This [...] DIARRHEA Admission December 03, 2023 3:26:[address] [address] Discharge December 03, 2023 6:10:00 PM UT DIS CHARGED TO HOME OR SELF CARE ENCOUNTER DIAGNOSES Notes information is not anila ilable. Code System Diagnosis Onset Date Diagnosis information is not available. 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 [id number] on December 06, 2023 3:07:40 PM UT F41.9 ICD10 ANXIETY DISORDER, UNSPECIFIE D GPS4932 on December 06, 2023 3:07:40 PM UT Z79.890 ICD10 HORMONE REPLACEMENT THERAPY [id number] on December 06, 2023 3:07:40 PM UT Z79.899 ICD10 OTHER ASSISTED (CURRENT) DR RONNIE THERAPY [id number] on December 06, 2023 3:07:40 PM [facility] [email or web address]] 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 DRUGS [id number] on December 06, 2023 3:07:40 PM [facility] [[email or web address]] Z79.85 ICD10 LONG-TERM (CURRE NT) USE OF INJECTABLE NON-INSULIN ANTIDIABETIC DRUGS [id number] on December 06, 2023 3:07:40 PM [facility] [[email or web address]] Z88.5 ICD10 ALLERGY STATUS TO NARCOTIC A GENT [id number] on December 06, 2023 3:07:40 PM [facility] [[email or web address]] Z88.8 ICD10 ALLERGY STATUS T O OTHER DRUGS, MEDICAMENTS AND BIOLOGICAL SUBSTANCES [id number] on December 06, 2023 3:07:40 PM [facility] [[email or web address]] CARE TEAM Care Data Security Analyst Role LINWOOD DUENAS Primary Attending AUDREY CHEN Primary Care LINWOOD DUENAS Referring LINWOOD DUENAS Admitting CARE TEAM CARE cad intern Role on Team Status Start Date End Date Update d By YULISSA AGUILAR Referring normal December 03, 2023 4:11:05 PM [facility] [[email or web address]] December 03, 2023 4:00:00 AM [facility] [[email or web address]] [id number] on December 03, 2023 4:11:05 PM [facility] [[email or web address]] YULISSA AGUILAR Attending normal December 03, 2023 4:11:05 PM [facility] [[email or web address]] December 03, 2023 4:00:00 AM [facility] [[email or web address]] [id number] on December 03, 2023 4:11:05 PM [facility] [[email or web address]] YULISSA AGUILAR Admitting normal December 03, 2023 4:11:05 PM [facility] [[email or web address]] December 03, 2023 4:00:00 AM [facility] [[email or web address]] [id number] on December 03, 2023 4:11:05 PM [facility] [[email or web address]] GUSTAVO AGUILAR PCP normal December 03, 2023 3:27:35 PM [facility] [[email or web address]] December 03, 2023 4:00:00 AM [facility] [[email or web address]] [id number] on December 03, 2023 4:11:05 PM [facility] [[email or web address]]
--- OUTSIDE RECORDS SUMMARY | 2024-03-12 13:05 | XMS_ITS | Continuity of Care Document ---
Author Name Unknown Address [address], [place] [id number] Organization [facility] Phone Care Team Providers Care Travel Registered Nurse Nicu Name Role Phone GUSTAVO AUDREY Masterson Primary Care LINWOOD DUENAS Admitting LINWOOD DUENAS Unavailable LINWOOD DUENAS Primary Attending ALLERGIES AND ADVERSE REACTIONS ALLERGIES AND ADVERSE REACTIONS Code System Allergy Substance Adverse Reaction Date Reaction (Severity) Comment Status Reported By Updated By 7569 RXNorm NYSTATIN Adverse reaction to substance Not Specified active [id number] on December 03, 2023 3:48:40 PM [facility] 7052 RXNorm MORPHINE Adverse reaction to substance Not Specified active WAW7229 on December 03, 2023 3:48:40 PM [facility] [id number] SNOMED CT CORTICOSTEROIDS Adverse reaction to substance Not Specified active [id number] on December 03, 2023 3:48:40 PM [facility] FAMILY HISTORY RELATION: Father Status: Cause of : Old-age Age at : 100 SNOMED-CT Diagnosis Age At Onset Information not available RELATION: Mother Status: Cause of : Coronary arteriosclerosis Age at : 63 SNOMED-CT Diagnosis Age At Onset [id number] Coronary arteriosclerosis RESULTS Patient: EVENS Ferrari Date of : 1950 LABORATORY RESULTS Information is not available LABORATORY NARRATIVE RESULTS Information is not available RADIOLOGY RESULTS ORDER 100: FEMUR 2V LT (LOIN C: 05561-9) ORDER DATE: March 07, 2024 7:04:00 PM [facility] PERFORMING LAB: [address] [id number] Final Result Date: March 08 10:35:[address] [place] [address] Name: JONATHAN HORNER Exam Date: 03/07/2024 : 1950 Age 73 years Gender: F Physician: Facility: [facility] Facility HSV: Outpatient Exam: FEMUR 2V LT Two-view left femur HISTORY: Leg pain for 3 months since a fall. COMPARISON: None FINDINGS: 2 views show no evidence of an acute, displaced fracture or dislocation of the visualized bony architecture. Mild degenerative changes are noted of the hip and knee. No soft tissue abnormality is seen. No foreign body is identified. IMPRESSION: No acute abnormality identified. Dictated By: TIARA BROWN Transcribed By: TIARA BROWN Transcribed On: 03/08/2024 6:35 AM Electronically signed by: TIARA BROWN 03/08/2024 Thank you for referring JONATHAN HORNER to [facility]. Legally authenticated by KEVIN David III, MD 2024-03-08 06:35:51 PATHOLOGY NARRATIVE RESULTS Information is not available MICROBIOLOGY RESULTS No Micro Labs/Results Exist for Patient BLOOD ADMIN RESULTS Information is not available MEDICATIONS HOME MEDICATIONS Status RXNORM NDC Medication Dose Route Frequency Dates Comments Reported By Updated By Drug Treatment Unknown DISCHARGE MEDICATIONS Status RXNORM NDC Medication Dose Route Frequency Dates Comments Physician Updated By No Discharge Medication Info rmation Available INPATIENT MEDICATIONS Status RXNORM NDC Medication Dose Route Frequency Rat e Quantity Dates Comments Physician [id number] 3799 9099 120 traMADol (ULTRAM) 50 MG TABS 50.0 MG BY MOUTH ONE TIME ONLY Start: March 07, 2024 9:33:0 0 PM UT End: March 07, 2024 9:33:0 0 PM UTC YULISSA Jose MD INTERFAC ED on March 07, 2024 9:32:00 PM UT SOCIAL HISTORY SOCIAL HISTORY SNOMED-CT Social History Element Description Effective Dates Offered Cessation Comment UpdatedBy [id number] Historical Tobacco smoking status Former Smoker Yes [id number] on June 15, 2019 5:40:59 PM UT [...] for each vital sign as of March 12, 2024 8:46:47 AM UTC Loinc Code Vital Sign Activity Date Result Updated By 8310-5 Body temperature March 07, 2024 6:42:25 PM UTC 97.1 [degF] [id number] on March 08, 2024 9:39:09 PM UTC 52000-0 Body weight Measured March 08 9:39:12 PM UTC 100.698 kg (222.0 lb) MGA9769 on March 08, 2024 9:39:12 PM UTC 8462-4 Diastolic blood pressure March 07, 2024 9:35:43 PM UTC 105.0 mm[Hg] [id number] on March 08, 2024 9:39:15 PM UT 8867-4 Heart rate March 07, 2024 9:35:43 PM UTC 74 /min CYY0946 on March 08, 2024 9:39:15 PM UTC 84562-0 Oxygen saturation in Arterial blood by Pulse oximetry March 07, 2024 9:35:43 PM UTC 98.0 % [id number] on March 08, 2024 9:39:15 PM UTC 9279-1 Respiratory rate March 07, 2024 9:35:43 PM UTC 16 /min BBO3092 on March 08, 2024 9:39:15 PM UTC 8480-6 Systolic blood pressure March 07, 2024 9:35:43 PM UTC 196.0 mm[Hg] [id number] on March 08, 2024 9:39:15 PM UTC PEDIATRIC GROWTH CHART - VITAL SIGNS This [...] PAIN Admission March 07, 2024 6:33:[address] [address] Discharge March 07, 2024 9:38:00 PM [facility] DISC HARGED TO HOME OR SELF CARE ENCOUNTER DIAGNOSES Notes information is not anila ilable. Code System Diagnosis Onset Date Diagnosis information is not available. ABSTRACT DIAGNOSES Code System Diagnosis Updated By M79.662 ICD10 PAIN IN LEFT LOWER LEG [id number] 18 on March 12, 2024 8:38:23 AM UT S39.92XA ICD10 UNSPECIFIED INJU RY OF LOWER BACK, INITIAL ENCOUNTER KCQ4072 on March 12, 2024 8:38:23 AM [facility] S89.92XA ICD10 UNSPECIFIED INJU RY OF LEFT LOWER LEG, INITIAL ENCOUNTER [id number] on March 12, 2024 8:38:23 AM [facility] M79.7 ICD10 FIBROMYALGIA PAS7367 on March 12, 2024 8:38:23 AM [facility] E11.9 ICD10 TYPE 2 DIABETES MELLITUS WITHOUT COMPLICATIONS [id number] on March 12, 2024 8:38:23 AM [facility] E66.01 ICD10 MORBID (SEVERE) OBESITY DUE TO EXCESS CALORIES [id number] on March 12, 2024 8:38:23 AM [facility] I10 ICD10 ESSENTIAL (PRIMARY) HYPERTEN BIJU [id number] on March 12, 2024 8:38:23 AM [facility] Z68.1 ICD10 BODY MASS INDEX [BMI] 19.9 OR LESS, ADULT [id number] on March 12, 2024 8:38:23 AM [facility] Z88.5 ICD10 ALLERGY STATUS TO NARCOTIC A GENT [id number] on March 12, 2024 8:38:23 AM [facility] Z87.891 ICD10 PERSONAL HISTORY OF NICOTINE DEPENDENCE [id number] on March 12, 2024 8:38:23 AM [facility] Z79.84 ICD10 DESTINATION COORDINATOR (CURRE NT) USE OF ORAL HYPOGLYCEMIC DRUGS [id number] on March 12, 2024 8:38:23 AM [facility] Z79.85 ICD10 LONG-TERM (CURRE NT) USE OF INJECTABLE NON-INSULIN ANTIDIABETIC DRUGS GLK7492 on March 12, 2024 8:38:23 AM [facility] Z79.899 ICD10 OTHER DESTINATION COORDINATOR (CURRENT) DR TRUJILLO THERAPY [id number] on March 12, 2024 8:38:23 AM [facility] CARE TEAM Care Travel Registered Nurse Nicu Role AUDREY CHEN Primary Care LINWOOD DUENAS Admitting LINWOOD DUENAS Referring LINWOOD DUENAS Primary Attending CARE TEAM CARE senior engineering specialist Role on Team Status Start Date End Date Update d By YULISSA AGUILAR Referring normal March 07, 2024 7:17:41 PM UT March 07, 2024 9:38:00 PM UT [id number] on March 07, 2024 7:17:41 PM [facility] YULISSA AGUILAR Attending normal March 07, 2024 7:17:41 PM [facility] March 07, 2024 9:38:00 PM UT [id number] on March 07, 2024 7:17:41 PM [facility] YULISSA AGUILAR Admitting normal March 07, 2024 7:17:41 PM [facility] March 07, 2024 9:38:00 PM UT [id number] on March 07, 2024 7:17:41 PM [facility] GUSTAVO AGUILAR PCP normal March 07, 2024 6:33:31 PM UT March 07, 2024 9:38:00 PM UT [id number] on March 07, 2024 7:17:41 PM [facility]
[2024-03-12 13:39] VITALS: BP 171/85; PULSE 79; RESP 18; O2SAT 94; BMI 35.2
--- NOTE | 2024-03-12 14:20 | EXP.PAIN.OV ---
HPI Data of Consult Patient: new to practice Consult date: 03/12/24 Requesting Physician: Carmina Braswell APRN Primary Care Provider: Garret Jaime Consult Narrative Reason for consult: Low back pain, bilateral hip pain History of present illness: Ms. De Guzman is a 73 year old female who presents today as a new patient. She is a referral from Dr. Garret Jaime' office. Today she rates her pain a 9 out of 10. Patient states that she has pain all across her low back and bilateral hips has been going on for more than 5 years. Patient states that it is progressively worsened over time. She does state that this is an aching, throbbing sensation with some numbness and tingling and does interfere with her ability perform activities of daily living such as cooking and cleaning. Patient does state that she has gotten 3 hip injections along the left side from Dr. Benito Barry and that those do help. She states that she is scheduled for 1 coming up on the 16th of this month. Patient does states she is interested in any help we may be able to provide. She has tried [id number] Tylenol and ibuprofen along with heat and ice and topicals with minimal relief. She does state that she still uses Voltaren from time to time. Patient has tried physical therapy and chiropractor therapy however this worsened her pain. She does do still continued at home exercising and stretching with minimal relief. Patient was prescribed Lortab in the past and states that it would help from time to time however her primary care has not prescribed it any recently. Patient does have a history of hypertension and does state that her pressure today is normal and that her primary care is aware. She is prescribed gabapentin and alprazolam from an outside provider. Her Conrad has been reviewed and is appropriate. CC: Carmina Braswell APRN [facility] Disclaimer: The information contained in this section may have been updated after the patient was seen, as this information can be updated by other users. Medical History (Updated 03/12/24 @ 14:24 by Carmina Braswell APRN) COPD (chronic obstructive pulmonary disease) Fibromyalgia Carpal tunnel syndrome Hemorrhoid HLD (hyperlipidemia) Diabetes HTN (hypertension) Hypothyroidism GERD (gastroesophageal reflux disease) Anxiety Surgical History (Updated 03/12/24 @ 13:13 by Jennifer Gonzalez RN) H/O thyroidectomy H/O: hysterectomy Hx of cholecystectomy H/O colonoscopy H/O esophagogastroduodenoscopy Family History (Updated 03/12/24 @ 13:06 by Jennifer Gonzalez, RN) Other Alcoholism Social History (Updated 03/12/24 @ 13:39 by Jennifer Gonzalez, RN) Smoking Status: Never smoker alcohol intake: never current occupational status: retired Travel in the last 8 weeks: None Review of Systems Review of Systems Review of systems:: pertinent systems reviewed and negative unless documented below Review of systems (narrative): Review of Systems: General: No recent weight changes, no fever, no sleep disturbances Respiratory: No cough, no shortness of air, no recurring pulmonary infections Cardiovascular/peripheral vascular: No chest pain, no palpitations, no edema, no shortness of breath Gastrointestinal: No new onset incontinence, normal bowel movements reported Genitourinary: No new onset incontinence Musculoskeletal: Low back pain, bilateral hip pain Psychiatric: [Normal mood/affect] Neurological: [Denies weakness in extremities], [denies balance issues] Meds Home Medications and Allergies Home Medications Medication Instructions Recorded Confirmed Type albuterol sulfate 90 mcg/actuation 2 puff inhalation Q6HP PRN 03/12/24 03/12/24 History aerosol inhaler Breathing Problems alprazolam 1 mg tablet 1 mg PO TID Anxiety 03/12/24 03/12/24 History atenolol 25 mg tablet 25 mg PO BID BLOOD PRESSURE 03/12/24 03/12/24 History famotidine 20 mg tablet 20 mg PO BID GERD 03/12/24 03/12/24 History glipizide 10 mg tablet 10 mg PO BID Diabetes 03/12/24 03/12/24 History levothyroxine 88 mcg tablet 88 mcg PO DAILY THYROID 03/12/24 03/12/24 History semaglutide 1 mg/dose (4 mg/3 mL) 0.5 mg SQ WEEKLY 03/12/24 03/12/24 History subcutaneous pen injector (Ozempic) New Prescriptions to Start Prescriptions: Allergies Allergy/AdvReac Type Severity Reaction Status Date / Time No Known Allergies Allergy Unverified 07/10/21 07:40 Objective Vital signs: Pulse Resp BP Pulse Ox O2 Del Method 79 18 171/85 H 94 L Room Air 03/12/24 13:39 03/12/24 13:39 03/12/24 13:39 03/12/24 13:39 03/12/24 13:39 Narrative: Physical Exam: General: Alert and oriented x3, no acute distress, pleasant and cooperative Lungs: Respirations even and unlabored, symmetrical chest expansion Eyes: PERRL Musculoskeletal: Flexion and extension of lumbar [spine] somewhat guarded secondary to pain, [antalgic gait noted] point tenderness along bilateral SIs with positive bilateral Elmira's, Demian's, Gaenslen's, compression and distraction exam Neurological: Speech clear, no gross sensory deficit Assessment and Plan *Assessment and plan (1) Low back pain: Status: Acute Qualifiers: Chronicity: chronic Back pain laterality: bilateral Sciatica presence: with sciatica Sciatica laterality: bilateral sciatica Qualified Code(s): M54.42 - Lumbago with sciatica, left side; M54.41 - Lumbago with sciatica, right side; G89.29 - Other chronic pain Category: Medical Code(s): M54.50 - Low back pain, unspecified (2) Bilateral hip pain: Status: Acute Category: Medical Code(s): M25.551 - Pain in right hip; M25.552 - Pain in left hip (3) Sacroiliitis: Status: Acute Category: Medical Code(s): M46.1 - Sacroiliitis, not elsewhere classified Plan Patient is experiencing significant pain in her low back and hips with limited range of motion. Patient did have extreme point tenderness along her bilateral SIs and a positive bilateral Elmira's, Demian's, Gaenslen's, compression and distraction exam. I have discussed with the patient that she may benefit from bilateral SI injections. Risk and benefits were discussed with patient and she would like to proceed forward with this plan of care. Patient does state that she is scheduled for cataract surgery on March 20 and then to have her second on April 03. I have counseled the patient that I do not perceive any issue with the steroid injections in her SI joints however I do recommend she follow-up with her emergency preparedness manager to confirm no contraindications. Patient is agreeable to this. Patient has tried and failed conservative therapies including continued at home stretching exercise for longer than 6 weeks. We will schedule the patient for bilateral SI injections under fluoroscopy. Patient has been instructed to contact the clinic with any concerns before the next appointment. Dr. Ballesteros has reviewed this note and agrees with this plan of care. This note was dictated using voice recognition software and make contain errors or omissions.
== END 2024-03-12 23:59 | disposition home or self-care (01) ==
LOC: SC.PAIN 13:03
PROVIDERS: PCP Family Medicine; Visit Provider Nurse Practitioner Family
DX: M54.42 Lumbago with sciatica, left side (principal); M54.41 Lumbago with sciatica, right side; G89.29 Other chronic pain; M25.551 Pain in right hip; M25.552 Pain in left hip; M46.1 Sacroiliitis, not elsewhere classified
CPT/HCPCS: 99202; G0463